=== PATIENT | male | born 1960 | race African-American/Black ===

== ENCOUNTER 2017-10-26 14:32 | Inpatient (IN) | payer SELFPAY ==
[2017-10-26 15:49] LABS: ADD MAN DIFF? NO
[2017-10-26 15:54] LABS: BASO # 0.1 x10^3/uL (0.0-0.2); BASO % 1 % (0-3); EOS # 0.4 x10^3/uL (0.0-0.7); EOS % 4 % (0-3); HEMATOCRIT 39.3 % (39.0-53.0); HEMOGLOBIN 12.8 g/dL (13.0-17.5); LYMPH # 2.1 x10^3/uL (1.0-4.8); LYMPH % 21 % (24-48); MEAN CORPUSCULAR HEMOGLOBIN 31 pg (25-35); MEAN CORPUSCULAR HGB CONC 33 g/dL (31-37); MEAN CORPUSCULAR VOLUME 94 fL (79-100); MONO # 0.6 x10^3/uL (0.0-1.1); MONO % 6 % (0-9); NEUT # 6.9 x10^3uL (1.8-7.7); NEUT % 69 % (31-73); PLATELET COUNT 241 x10^3/uL (140-400); RED BLOOD COUNT 4.19 x10^6/uL (4.30-5.70); RED CELL DISTRIBUTION WIDTH 15.6 % (11.5-14.5); WHITE BLOOD COUNT 10.1 x10^3/uL (4.0-11.0)
[2017-10-26] MEDS: cloNIDine HCL 0.1 MG TABLET PO (15:56)
[2017-10-26] MEDS: FUROSEMIDE 20 MG/2 ML VIAL. IVP (15:57)
[2017-10-26 16:06] LABS: ANION GAP 7 (6-14); BLOOD UREA NITROGEN 22 mg/dL (8-26); CALCIUM 9.2 mg/dL (8.5-10.1); CARBON DIOXIDE 30 mmol/L (21-32); CHLORIDE 103 mmol/L (98-107); CREATININE 1.9 mg/dL (0.7-1.3); GFR 44.8; GLUCOSE 169 mg/dL (70-99); SODIUM 140 mmol/L (136-145)
[2017-10-26 16:17] LABS: TROPONINI 0.074 ng/mL (0.000-0.055)
[2017-10-26 16:20] LABS: NT-PRO BNP 7707 pg/mL (0-124)
[2017-10-26 16:21] LABS: THYROID STIM HORMONE (TSH) 36.089 uIU/mL (0.358-3.74)
[2017-10-26 17:10] LABS: BARBITURATES NEG (NEG); BENZODIAZEPINES NEG (NEG); CANNABINOIDS NEG (NEG); COCAINE NEG (NEG); METHADONE NEG (NEG); OPIATES NEG (NEG); PHENCYCLIDINE NEG (NEG)
[2017-10-26 17:12] LABS: AMPHETAMINE/METHAMPHETAMINE NEG (NEG); ETHANOL, URINE NEG (NEG)
[2017-10-26] MEDS: ASPIRIN CHEWABLE 81 MG TABLET. PO (17:22)
[2017-10-26 17:31] LABS: FREE T4 0.13 ng/dL (0.76-1.46)
[2017-10-26] MEDS ORDERED: MAGNESIUM HYDROXIDE 2,400 MG/30 ML ORAL.SUSP. PO (18:00)
[2017-10-26] MEDS ORDERED: DOCUSATE SODIUM 100 MG CAPSULE. PO (18:00)
[2017-10-26] MEDS ORDERED: ONDANSETRON PF 4 MG/2 ML VIAL. IV (18:00)
[2017-10-26] MEDS ORDERED: traMADol 50 MG TABLET PO (18:00)
[2017-10-26] MEDS ORDERED: ACETAMINOPHEN 325 MG TABLET. PO (18:00)
[2017-10-26] MEDS: FUROSEMIDE 40 MG/4 ML VIAL. IVP (18:00)
[2017-10-26] MEDS ORDERED: amLODIPine BESYLATE 10 MG TABLET PO (18:30)
[2017-10-26] MEDS: DOCUSATE SODIUM 100 MG CAPSULE. PO (21:00)
[2017-10-26] MEDS: SENNOSIDES/DOCUSATE 8.6/50MG TABLET. PO (21:00)
[2017-10-26] MEDS: ASPIRIN ENTERIC COATED 81 MG TABLET.DR. PO (22:13)
[2017-10-26 22:14] LABS: TROPONINI 0.067 ng/mL (0.000-0.055)
[2017-10-26] MEDS: LEVOTHYROXINE 137 MCG TABLET PO (22:14)
[2017-10-26] MEDS: MORPHINE SULFATE 4 MG/ML DISP.SYRIN. IV (22:14)
[2017-10-26] MEDS: HEPARIN PF for SUB-Q USE 5,000 UNIT/0.5 ML VIAL. SQ (22:20)
[2017-10-27] MEDS: hydrALAZINE 20 MG/ML VIAL. IVP (03:09)
[2017-10-27 04:13] LABS: ADD MAN DIFF? NO
[2017-10-27 04:23] LABS: BASO # 0.1 x10^3/uL (0.0-0.2); BASO % 1 % (0-3); EOS # 0.6 x10^3/uL (0.0-0.7); EOS % 7 % (0-3); HEMATOCRIT 39.5 % (39.0-53.0); HEMOGLOBIN 13.1 g/dL (13.0-17.5); LYMPH # 1.7 x10^3/uL (1.0-4.8); LYMPH % 19 % (24-48); MEAN CORPUSCULAR HEMOGLOBIN 31 pg (25-35); MEAN CORPUSCULAR HGB CONC 33 g/dL (31-37); MEAN CORPUSCULAR VOLUME 92 fL (79-100); MONO # 0.7 x10^3/uL (0.0-1.1); MONO % 7 % (0-9); NEUT # 6.2 x10^3uL (1.8-7.7); NEUT % 67 % (31-73); PLATELET COUNT 247 x10^3/uL (140-400); RED BLOOD COUNT 4.28 x10^6/uL (4.30-5.70); RED CELL DISTRIBUTION WIDTH 15.2 % (11.5-14.5); WHITE BLOOD COUNT 9.3 x10^3/uL (4.0-11.0)
[2017-10-27 05:03] LABS: ANION GAP 9 (6-14); BLOOD UREA NITROGEN 19 mg/dL (8-26); CALCIUM 9.1 mg/dL (8.5-10.1); CARBON DIOXIDE 32 mmol/L (21-32); CHLORIDE 101 mmol/L (98-107); CHOLESTEROL 294 mg/dL (0-200); CREATININE 1.5 mg/dL (0.7-1.3); GFR 58.8; GLUCOSE 108 mg/dL (70-99); HDLC 31 mg/dL (40-60); LDLC 197 mg/dL (0-100); NON-HDL CHOLESTEROL 263 mg/dL (0-129); SODIUM 142 mmol/L (136-145); TRIGLYCERIDES 330 mg/dL (0-150); VLDLC 66 mg/dL (0-40)
[2017-10-27 05:06] LABS: CHOLESTEROL/HDL RATIO 9.5
[2017-10-27 05:09] LABS: TROPONINI 0.086 ng/mL (0.000-0.055)
[2017-10-27] MEDS: HEPARIN PF for SUB-Q USE 5,000 UNIT/0.5 ML VIAL. SQ ×3 (06:02→21:16)
[2017-10-27] MEDS: ASPIRIN ENTERIC COATED 81 MG TABLET.DR. PO (08:04)
[2017-10-27] MEDS: CARVEDILOL 12.5 MG TABLET. PO ×2 (08:05→17:00)
[2017-10-27] MEDS: DOCUSATE SODIUM 100 MG CAPSULE. PO ×2 (08:19→21:00)
[2017-10-27] MEDS: SENNOSIDES/DOCUSATE 8.6/50MG TABLET. PO ×2 (08:19→21:00)
[2017-10-27] MEDS: POTASSIUM CHLORIDE 20 MEQ TABLET.ER. PO (08:28)
[2017-10-27] MEDS: LEVOTHYROXINE 137 MCG TABLET PO (08:29)
[2017-10-27] MEDS: amLODIPine BESYLATE 10 MG TABLET PO (08:29)
[2017-10-27 17:13] LABS: HEMOGLOBIN A1C 6.6 % (4.8-5.6)
[2017-10-27 19:12] LABS: MRSA BY PCR Negative (Negative)
[2017-10-28 05:19] LABS: ANION GAP 9 (6-14); BLOOD UREA NITROGEN 26 mg/dL (8-26); CALCIUM 8.9 mg/dL (8.5-10.1); CARBON DIOXIDE 30 mmol/L (21-32); CHLORIDE 101 mmol/L (98-107); CREATININE 1.8 mg/dL (0.7-1.3); GFR 47.6; GLUCOSE 164 mg/dL (70-99); POTASSIUM 3.7 mmol/L (3.5-5.1); SODIUM 140 mmol/L (136-145)
[2017-10-28] MEDS: LEVOTHYROXINE 137 MCG TABLET PO (06:33)
[2017-10-28] MEDS: HEPARIN PF for SUB-Q USE 5,000 UNIT/0.5 ML VIAL. SQ ×3 (06:36→20:57)
[2017-10-28] MEDS: amLODIPine BESYLATE 10 MG TABLET PO (07:50)
[2017-10-28] MEDS: CARVEDILOL 12.5 MG TABLET. PO ×2 (07:51→17:36)
[2017-10-28] MEDS: ASPIRIN ENTERIC COATED 81 MG TABLET.DR. PO (07:51)
[2017-10-28] MEDS: DOCUSATE SODIUM 100 MG CAPSULE. PO ×2 (07:55→20:52)
[2017-10-28] MEDS: SENNOSIDES/DOCUSATE 8.6/50MG TABLET. PO ×2 (07:56→20:52)
[2017-10-28 11:38] LABS: NT-PRO BNP 1869 pg/mL (0-124)
[2017-10-28] MEDS: POTASSIUM CHLORIDE 20 MEQ TABLET.ER. PO (13:46)
[2017-10-28] MEDS: FUROSEMIDE 40 MG TABLET. PO (13:46)
[2017-10-28] MEDS: ATORVASTATIN CALCIUM 40 MG TABLET. PO (20:52)
[2017-10-28 21:24] LABS: POC GLUCOSE 141 mg/dL (70-99)
[2017-10-29] MEDS: HEPARIN PF for SUB-Q USE 5,000 UNIT/0.5 ML VIAL. SQ ×3 (06:00→21:18)
[2017-10-29] MEDS: CARVEDILOL 12.5 MG TABLET. PO ×2 (08:10→17:04)
[2017-10-29] MEDS: ASPIRIN ENTERIC COATED 81 MG TABLET.DR. PO (08:10)
[2017-10-29] MEDS: LEVOTHYROXINE 137 MCG TABLET PO (08:10)
[2017-10-29] MEDS: amLODIPine BESYLATE 10 MG TABLET PO (08:10)
[2017-10-29] MEDS: REGADENOSON 0.4 MG/5 ML DISP.SYRIN. IV (11:11)
[2017-10-29 13:51] LABS: ANION GAP 6 (6-14); BLOOD UREA NITROGEN 21 mg/dL (8-26); CALCIUM 8.4 mg/dL (8.5-10.1); CARBON DIOXIDE 33 mmol/L (21-32); CHLORIDE 103 mmol/L (98-107); CREATININE 1.7 mg/dL (0.7-1.3); GFR 50.9; GLUCOSE 141 mg/dL (70-99); POTASSIUM 4.1 mmol/L (3.5-5.1); SODIUM 142 mmol/L (136-145)
[2017-10-29] MEDS: SENNOSIDES/DOCUSATE 8.6/50MG TABLET. PO ×2 (14:09→21:13)
[2017-10-29] MEDS: DOCUSATE SODIUM 100 MG CAPSULE. PO ×2 (14:09→21:13)
[2017-10-29] MEDS: FUROSEMIDE 40 MG TABLET. PO (14:10)
[2017-10-29] MEDS: cloNIDine HCL 0.1 MG TABLET PO ×2 (14:10→21:18)
[2017-10-29] MEDS: LISINOPRIL 5 MG TABLET. PO (17:04)
[2017-10-29] MEDS: ATORVASTATIN CALCIUM 40 MG TABLET. PO (21:13)
== END 2017-10-29 22:15 | disposition home or self-care (01) | DRG 291 ==
LOC: 5 SOUTH 10-27 19:49 → ER 14:32 → 1 WEST ICU 17:17
DX: I13.0 Hypertensive heart and chronic kidney disease with heart failure and stage 1 through stage 4 chronic kidney disease, or unspecified chronic kidney disease (principal); I50.43 Acute on chronic combined systolic (congestive) and diastolic (congestive) heart failure; E11.22 Type 2 diabetes mellitus with diabetic chronic kidney disease; I31.3 Pericardial effusion (noninflammatory); E66.01 Morbid (severe) obesity due to excess calories; E11.65 Type 2 diabetes mellitus with hyperglycemia; N18.3 Chronic kidney disease, stage 3 (moderate); E03.9 Hypothyroidism, unspecified; E78.5 Hyperlipidemia, unspecified; E87.6 Hypokalemia; F12.90 Cannabis use, unspecified, uncomplicated; I16.0 Hypertensive urgency; Z82.49 Family history of ischemic heart disease and other diseases of the circulatory system; Z91.19 Patient's noncompliance with other medical treatment and regimen
CPT/HCPCS: 36415; 71045; 71046; 78452; 80048; 80061; 80307; 82962; 83036; 83880; 84439; 84443; 84484; 85025; 87641; 93005; 93017; 93306; 96361; 96374; 96375; 96376; 99291-25; 99292; A9500; J0360; J1940; J2270; J2785; J7050